=== PATIENT | male | born 1985 | race Hispanic/Latino ===

== ENCOUNTER 2019-04-24 09:47 | Emergency (ER) | payer SELFPAY ==
[2019-04-24 10:37] LABS: #Basophils 0.1 thou/uL (0.0-0.2); #Eosinphils 0.6 thou/uL (0.0-0.7); #Lymphocytes 1.6 thou/uL (1.20-3.40); #Monocytes 0.7 thou/uL (0.11-0.59); %Basophils 0.8 % (0.0-1.0); %Eosinophils 6.6 % (0.0-10.0); %Lymphocytes 17.5 % (21.0-51.0); %Monocytes 7.7 % (0.0-10.0); %Neutrophils 67.4 % (42.0-75.0); Hemoglobin 14.8 g/dL (14.0-18.0); Mean Corpuscular HGB CONC 33.5 g/dL (32.0-36.0); Mean Corpuscular Hemoglobin 30.1 pg (27.0-31.0); Mean Corpuscular Volume 89.9 fL (78.0-98.0); Mean Platelet Volume 9.2 fL (7.4-10.4); Platelet Count 239 thou/uL (130-400); RBC Distribution Width 12.3 % (11.5-14.5); Red Blood Cell (RBC) Count 4.93 mill/uL (4.70-6.10); White Blood Cell (WBC) Count 8.9 thou/uL (4.8-10.8)
--- NOTE | 2019-04-24 10:40 | CT ---
CT head noncontrast HISTORY: Seizure. COMPARISON: 04/17/2004. FINDINGS: There is no evidence of acute intracranial hemorrhage or infarct. The ventricles appear nor mal in size, shape and position. There is no mass effect or shift of midline structures. Visualized paranasal sinuses remain well-aerated. IMPRESSION: No acute intracranial abnormalities are demonstrated.
[2019-04-24 11:04] LABS: ALT (SGPT) 24 U/L (8-55); AST (SGOT) 11 U/L (5-34); Albumin 4.4 g/dL (3.5-5.0); Alkaline Phosphatase 57 U/L (40-150); Anion Gap 12 mmol/L (10-20); BUN (Urea Nitrogen) 8 mg/dL (8.9-20.6); Bilirubin, Total 0.3 mg/dL (0.2-1.2); Calc. Creatinine Clearance 0 mL/min (70-130); Calcium 8.9 mg/dL (7.8-10.44); Carbon Dioxide 18 mmol/L (22-29); Chloride 109 mmol/L (98-107); Estimated GFR-MDRD Greater than 90; Globulin 3.2 g/dL (2.4-3.5); Glucose 104 mg/dL (70-105); Potassium 4.3 mmol/L (3.5-5.1); Protein, Total 7.6 g/dL (6.0-8.3); Sodium 135 mmol/L (136-145)
[2019-04-24] MEDS ORDERED: Acetaminophen 500 MG TAB ONE (12:04)
[2019-04-24] MEDS ORDERED: diphenhydrAMINE 50 MG/ML VIAL ONE (12:04)
[2019-04-24] MEDS ORDERED: Metoclopramide HCl 10 MG/2 ML VIAL ONE (12:04)
[2019-04-24 12:37] LABS: Medtox Reader # READER 1; THC/Cannabinoid Screen Detected (NotDetected)
[2019-04-24 12:38] LABS: Amphetamine Not Detected (NotDetected); Barbiturates Screen Not Detected (NotDetected); Benzodiazepine Screen Not Detected (NotDetected); Cocaine Metabolite Screen Not Detected (NotDetected); Medtox Control Line Valid? VALID (VALID); Methadone Not Detected (NotDetected); Methamphetamine Not Detected (NotDetected); Opiate Screen Not Detected (NotDetected); Oxycodone Screen Not Detected (NotDetected); Phencyclidine (PCP) Not Detected (NotDetected); Tricyclic Screen Not Detected (NotDetected)
[2019-04-24] MEDS ORDERED: Ketorolac Tromethamine 30 MG/ML VIAL ONE (13:16)
--- NOTE | 2019-04-29 17:05 | EKG ---
Test Reason : SEIZURE Blood Pressure : / mmHG Vent. Rate : 081 BPM Atrial Rate : 081 BPM P-R Int : 138 ms QRS Dur : 088 ms QT Int : 372 ms P-R-T Axes : 009 038 011 degrees QTc Int : 432 ms Normal sinus rhythm Q wave III, aVF Confirmed by CRIS PHIPPS DO ([id number]), image editor OLEG AVLARADO ([id number]) on 04/29/2019 5:05:31 PM Referred By: Confirmed By:CRIS PHIPPS DO
== END 2019-04-24 13:25 | disposition home or self-care (01) ==
LOC: ERS 09:47
DX: R56.9 Unspecified convulsions (principal); F31.9 Bipolar disorder, unspecified; F17.210 Nicotine dependence, cigarettes, uncomplicated
CPT/HCPCS: 36415; 70450; 80053; 80306; 84146; 85025; 93005; J1200; J1885; J2765

== ENCOUNTER 2019-05-29 07:52 | Emergency (ER) | payer SELFPAY ==
[2019-05-29] MEDS ORDERED: Ondansetron PF 4 MG/2 ML Vial ONE (08:40)
[2019-05-29] MEDS ORDERED: Ketorolac Tromethamine 30 MG/ML VIAL ONE (08:40)
[2019-05-29 08:41] LABS: #Basophils 0.1 thou/uL (0.0-0.2); #Eosinphils 0.7 thou/uL (0.0-0.7); #Monocytes 0.5 thou/uL (0.11-0.59); #Neutrophils 4.5 thou/uL (1.40-6.50); %Basophils 1.1 % (0.0-1.0); %Eosinophils 9.3 % (0.0-10.0); %Lymphocytes 25.3 % (21.0-51.0); %Monocytes 6.9 % (0.0-10.0); %Neutrophils 57.5 % (42.0-75.0); Hemoglobin 14.5 g/dL (14.0-18.0); Mean Corpuscular Hemoglobin 29.8 pg (27.0-31.0); Mean Corpuscular Volume 90.1 fL (78.0-98.0); Mean Platelet Volume 8.8 fL (7.4-10.4); Platelet Count 224 thou/uL (130-400); RBC Distribution Width 12.6 % (11.5-14.5); Red Blood Cell (RBC) Count 4.89 mill/uL (4.70-6.10); White Blood Cell (WBC) Count 7.8 thou/uL (4.8-10.8)
[2019-05-29 08:58] LABS: ALT (SGPT) 26 U/L (8-55); AST (SGOT) 15 U/L (5-34); Alkaline Phosphatase 55 U/L (40-150); Anion Gap 13 mmol/L (10-20); BUN (Urea Nitrogen) 10 mg/dL (8.9-20.6); Bilirubin, Total 0.2 mg/dL (0.2-1.2); Calc. Creatinine Clearance 0 mL/min (70-130); Calcium 8.8 mg/dL (7.8-10.44); Carbon Dioxide 15 mmol/L (22-29); Chloride 112 mmol/L (98-107); Estimated GFR-MDRD Greater than 90; Globulin 2.9 g/dL (2.4-3.5); Glucose 105 mg/dL (70-105); Potassium 4.1 mmol/L (3.5-5.1); Protein, Total 6.9 g/dL (6.0-8.3); Sodium 136 mmol/L (136-145)
[2019-05-29] MEDS ORDERED: levETIRAcetam 500 MG TAB PO SCH (09:00)
== END 2019-05-29 09:06 | disposition home or self-care (01) ==
LOC: ERS 07:52
DX: G40.909 Epilepsy, unspecified, not intractable, without status epilepticus (principal)
CPT/HCPCS: 36415; 80053; 80177; 84146; 85025; 93005; J1885; J2405